=== PATIENT | female | born 1970 | race Caucasian/White ===

== ENCOUNTER 2018-06-28 17:25 | Inpatient (IN) | payer OTHER, MEDICAID ==
[~2018-06-28] VITALS: Ht 160 cm; Wt 94.3 kg
[2018-06-28] MEDS ORDERED: HYDROCODONE/ACETAMINOPHEN 5/325MG TABLET PO STA (18:10)
[2018-06-28] MEDS ORDERED: SODIUM CHLORIDE 0.9% 1,000 ML IV ONE (18:10)
[2018-06-28] MEDS ORDERED: ONDANSETRON HCL 4MG/2ML INJ IV STA (18:10)
[2018-06-28 18:59] LABS: BASOPHILS % 0.5 % (0.0-2.0); CHLORIDE 110 mEq/L (98-107); HEMATOCRIT. 37.8 % (36.0-48.0); HEMOGLOBIN. 13.2 g/dL (12.0-16.0); LYMPHOCYTES % 15.7 % (20.0-50.0); MEAN CORPUSCULAR HEMOGLOBIN 29.5 pg (28.0-32.0); MEAN CORPUSCULAR VOLUME 84.5 fL (81.0-99.0); MEAN PLATELET VOLUME 7.6 fl (7.4-10.4); MONOCYTES % 5.6 % (2.0-8.0); NEUTROPHILS % 75.2 % (40.0-76.0); PLATELET 325 x1000/uL (130-400); RED BLOOD CELL COUNT 4.47 mill/uL (4.2-5.4); RED CELL DISTRIBUTION WIDTH 13.1 % (11.6-14.6)
[2018-06-28 19:02] LABS: INR 0.9; PROTHROMBIN TIME 9.4 sec (9.1-11.1)
[2018-06-28 19:23] LABS: CLARITY URINE CLOUDY (CLEAR); COLOR URINE YELLOW (YELLOW); KETONES URINE NEGATIVE (NEGATIVE); LEUKOCYTE ESTERASE URINE 3+ (NEGATIVE); NITRITE URINE NEGATIVE (NEGATIVE); OCCULT BLOOD URINE TRACE (NEGATIVE); PH URINE 5.5 (4.5-8.0); PROTEIN URINE NEGATIVE (NEGATIVE); SPECIFIC GRAVITY URINE 1.021 (1.005-1.030); UROBILINOGEN URINE 0.2 E.U./dL (0.2-1.0)
[2018-06-28] MEDS ORDERED: HYDROMORPHONE HCL/PF 2MG/ML CPJ IV ONE (21:00)
[2018-06-28] MEDS ORDERED: CEFTRIAXONE 1 G PREMIX 50 ML IV ONE (21:00)
[2018-06-29] MEDS ORDERED: MORPHINE SULFATE 2 MG/ML CPJ (NOT FOR IM USE) IV PRN
[2018-06-29] MEDS ORDERED: IPRATROPIUM/ALBUTEROL 0.5-3(2.5)MG/3ML NEB INH PRN
[2018-06-29] MEDS: ONDANSETRON HCL 4MG/2ML INJ IV PRN ×2 (00:26→18:40)
[2018-06-29 01:56] LABS: CHLORIDE 112 mEq/L (98-107)
[2018-06-29 05:30] LABS: BASOPHILS % 0.4 % (0.0-2.0); EOSINOPHILS % 1.7 % (0.0-5.0); HEMATOCRIT. 34.7 % (36.0-48.0); HEMOGLOBIN. 11.9 g/dL (12.0-16.0); LYMPHOCYTES % 19.8 % (20.0-50.0); MEAN CORPUSCULAR HEMOGLOBIN 29.4 pg (28.0-32.0); MEAN CORPUSCULAR VOLUME 85.3 fL (81.0-99.0); MEAN PLATELET VOLUME 7.3 fl (7.4-10.4); MONOCYTES % 7.1 % (2.0-8.0); PLATELET 292 x1000/uL (130-400); RED BLOOD CELL COUNT 4.07 mill/uL (4.2-5.4); RED CELL DISTRIBUTION WIDTH 13.4 % (11.6-14.6)
[2018-06-29 05:43] LABS: LDL CHOLESTEROL 91 mg/dL (5-100)
[2018-06-29 05:45] LABS: CREATINE KINASE 85 IU/L (26-192); HDL CHOLESTEROL 45 mg/dL (40-59)
[2018-06-29 06:11] LABS: CREATINE KINASE MB FRACTION 2.7 ng/mL (0.5-3.6)
[2018-06-29] MEDS ORDERED: CEFTRIAXONE 1 G PREMIX 50 ML IV SCH ×2 (10:00→21:00)
[2018-06-29] MEDS ORDERED: HYDROMORPHONE HCL/PF 2MG/ML CPJ IV PRN (10:00)
[2018-06-29 11:00] VITALS: BP 127/71
[2018-06-29 12:00] VITALS: BP 128/74
[2018-06-29] MEDS ORDERED: ENOXAPARIN 40MG/0.4ML SYR SUBCUT SCH (12:00)
[2018-06-29] MEDS: SODIUM CHLORIDE 0.9% 1,000 ML IV SCH (13:37)
[2018-06-29] MEDS ORDERED: QUET25TA MT (14:02)
[2018-06-29] MEDS ORDERED: OXCA150T5 MT (14:03)
[2018-06-29] MEDS ORDERED: LITH150C MT (14:03)
[2018-06-29 15:48] LABS: CREATINE KINASE 105 IU/L (26-192)
[2018-06-29 15:50] LABS: CREATINE KINASE MB FRACTION 2.2 ng/mL (0.5-3.6)
[2018-06-29 16:00] VITALS: BP 119/80
[2018-06-29 20:00] VITALS: BP 157/75
[2018-06-29] MEDS ORDERED: LORAZEPAM 2MG/ML CPJ IV PRN (20:00)
[2018-06-29] MEDS ORDERED: OXCA300T4 MT (20:46)
[2018-06-29] MEDS ORDERED: LITH300C3 PO (20:46)
[2018-06-29] MEDS ORDERED: QUET100T PO (20:46)
[2018-06-29] MEDS ORDERED: QUETIAPINE FUMARATE 25MG TABLET PO SCH (21:00)
[2018-06-29] MEDS ORDERED: OXCARBAZEPINE 300MG TABLET PO SCH (21:00)
[2018-06-29] MEDS ORDERED: QUETIAPINE FUMARATE 100MG TABLET PO SCH (21:00)
[2018-06-29] MEDS ORDERED: LITHIUM CARBONATE 900 MG PO SCH (21:00)
[2018-06-29] MEDS ORDERED: OXCARBAZEPINE MT SCH (21:00)
[2018-06-29] MEDS ORDERED: LITHIUM CARBONATE 150 MG CAPSULE PO SCH (21:00)
[2018-06-30] VITALS: BP 90/46
[2018-06-30 04:00] VITALS: BP 93/38
[2018-06-30] MEDS: SODIUM CHLORIDE 0.9% 1,000 ML IV SCH (04:54)
[2018-06-30 06:40] LABS: BASOPHILS % 0.6 % (0.0-2.0); EOSINOPHILS % 5.5 % (0.0-5.0); HEMATOCRIT. 31.5 % (36.0-48.0); LYMPHOCYTES % 34.4 % (20.0-50.0); MEAN CORPUSCULAR VOLUME 85.7 fL (81.0-99.0); MEAN PLATELET VOLUME 7.6 fl (7.4-10.4); MONOCYTES % 8.5 % (2.0-8.0); PLATELET 253 x1000/uL (130-400); RED BLOOD CELL COUNT 3.68 mill/uL (4.2-5.4); RED CELL DISTRIBUTION WIDTH 13.4 % (11.6-14.6)
[2018-06-30 06:53] LABS: CHLORIDE 111 mEq/L (98-107)
[2018-06-30 08:00] VITALS: BP 97/53
[2018-06-30] MEDS ORDERED: ENOXAPARIN 40MG/0.4ML SYR SUBCUT SCH (09:00)
[2018-06-30 12:00] VITALS: BP 111/64
[2018-06-30] MEDS ORDERED: POTASSIUM CHLORIDE 20MEQ TABLET SR PO NR (12:00)
[2018-06-30 14:49] VITALS: BP 119/74
[2018-06-30] MEDS ORDERED: OXCARBAZEPINE 300MG TABLET PO SCH (21:00)
== END 2018-06-30 15:07 | disposition home or self-care (01) | DRG 690 ==
LOC: ER 17:25 → 6EST 21:09 → ENRESERV 06-29 06:54 → CANRESERV 06-29 06:54 → ENRESERV 06-29 09:51 → 6EST 06-29 10:50
PROVIDERS: ADMIT Internal Medicine; ATTEND Internal Medicine
DX: N39.0 Urinary tract infection, site not specified (principal); K56.609 Unspecified intestinal obstruction, unspecified as to partial versus complete obstruction; A08.4 Viral intestinal infection, unspecified; E87.8 Other disorders of electrolyte and fluid balance, not elsewhere classified; F31.9 Bipolar disorder, unspecified; E66.9 Obesity, unspecified; M41.9 Scoliosis, unspecified; Z87.891 Personal history of nicotine dependence; Z68.36 Body mass index [BMI] 36.0-36.9, adult; Z88.8 Allergy status to other drugs, medicaments and biological substances
CPT/HCPCS: 36415; 74018; 74176; 80048; 80061; 82550; 82553; 83036; 83735; 84443; 84484; 93970; 96365; 96375; 99285; J0696; J1170; J1650; J2060; J2405; J7030

== ENCOUNTER 2021-07-29 19:15 | Emergency (ER) | payer MEDICARE ==
[~2021-07-29] VITALS: Ht 165.1 cm; Wt 91.0 kg
[~2021-07-29 19:15] MED LIST: LITH300C3 PO; OXCA300T4 MT; QUET100T PO
[2021-07-29] MEDS ORDERED: KETOROLAC 30MG/ML VIAL IV ONE (21:00)
[2021-07-29 21:02] LABS: BASOPHILS % 0.7 % (0.0-2.0); EOSINOPHILS % 2.4 % (0.0-5.0); HEMATOCRIT. 41.3 % (36.0-48.0); HEMOGLOBIN. 13.7 g/dL (12.0-16.0); LYMPHOCYTES % 20.7 % (20.0-50.0); MEAN CORPUSCULAR HEMOGLOBIN 28.4 pg (28.0-32.0); MEAN CORPUSCULAR VOLUME 85.7 fL (81.0-99.0); MEAN PLATELET VOLUME 7.7 fl (7.4-10.4); MONOCYTES % 5.9 % (2.0-8.0); NEUTROPHILS % 70.3 % (40.0-76.0); PLATELET 346 x1000/uL (130-400); RED BLOOD CELL COUNT 4.82 mill/uL (4.2-5.4); RED CELL DISTRIBUTION WIDTH 13.1 % (11.6-14.6)
[2021-07-29 21:04] LABS: CHLORIDE 115 mEq/L (98-107)
[2021-07-29 21:26] VITALS: BP 125/74
[2021-07-29] MEDS ORDERED: ONDANSETRON HCL 4MG/2ML INJ IV ONE (21:30)
[2021-07-29] MEDS ORDERED: ONDA4TAB5 PO (22:24)
[2021-07-29] MEDS ORDERED: TOPUD PO (22:24)
== END 2021-07-29 22:58 | disposition home or self-care (01) ==
LOC: ER 19:15
DX: R10.9 Unspecified abdominal pain (principal); R11.2 Nausea with vomiting, unspecified; Z88.0 Allergy status to penicillin; Z88.8 Allergy status to other drugs, medicaments and biological substances
CPT/HCPCS: 36415; 74176; 80053; 83690; 85025; 96374; 96375; 99284; J1885; J2405

== ENCOUNTER 2023-01-09 16:23 | Emergency (ER) | payer MEDICAID, MEDICARE ==
[~2023-01-09] VITALS: Ht 165.1 cm; Wt 100.0 kg
[~2023-01-09 16:23] MED LIST changes: +ONDA4TAB5 PO; +TOPUD PO
[2023-01-09] MEDS ORDERED: KETOROLAC 30MG/ML VIAL IV STA (17:21)
[2023-01-09] MEDS ORDERED: SODIUM CHLORIDE 0.9% 1,000 ML IV ONE (17:30)
[2023-01-09 17:52] VITALS: BP 138/90
[2023-01-09 18:09] LABS: BASOPHILS % 0.3 % (0.0-2.0); EOSINOPHILS % 2.8 % (0.0-5.0); HEMATOCRIT. 35.8 % (36.0-48.0); HEMOGLOBIN. 12.4 g/dL (12.0-16.0); LYMPHOCYTES % 17.8 % (20.0-50.0); MEAN CORPUSCULAR HEMOGLOBIN 28.9 pg (28.0-32.0); MEAN CORPUSCULAR VOLUME 83.4 fL (81.0-99.0); MEAN PLATELET VOLUME 7.3 fl (7.4-10.4); MONOCYTES % 7.3 % (2.0-8.0); NEUTROPHILS % 71.8 % (40.0-76.0); PLATELET 273 x1000/uL (130-400); RED CELL DISTRIBUTION WIDTH 13.5 % (11.6-14.6)
[2023-01-09 18:16] LABS: CHLORIDE 113 mEq/L (98-107)
[2023-01-09 18:28] LABS: HCG SCREEN NEGATIVE
[2023-01-09 18:28] LABS: CLARITY URINE CLEAR (CLEAR); COLOR URINE YELLOW (YELLOW); KETONES URINE NEGATIVE (NEGATIVE); LEUKOCYTE ESTERASE URINE 3+ (NEGATIVE); NITRITE URINE NEGATIVE (NEGATIVE); OCCULT BLOOD URINE TRACE (NEGATIVE); PROTEIN URINE NEGATIVE (NEGATIVE); SPECIFIC GRAVITY URINE 1.007 (1.005-1.030); UROBILINOGEN URINE 0.2 E.U./dL (0.2-1.0)
[2023-01-09] MEDS ORDERED: CIPR-263 MT (18:48)
== END 2023-01-09 19:40 | disposition home or self-care (01) ==
LOC: ER 16:23
DX: N39.0 Urinary tract infection, site not specified (principal); Z90.49 Acquired absence of other specified parts of digestive tract; Z88.0 Allergy status to penicillin; Z98.51 Tubal ligation status; Z98.890 Other specified postprocedural states
CPT/HCPCS: 36415; 74176; 80053; 81003; 83690; 84703; 85025; 96361; 96374; 99285; J1885; J7030; Z7610

== ENCOUNTER 2024-02-13 11:29 | Emergency (ER) | payer BC, MEDICAID ==
[~2024-02-13] VITALS: Ht 160 cm; Wt 113.0 kg
[~2024-02-13 11:29] MED LIST changes: +CIPR-263 MT
[2024-02-13 11:33] VITALS: O2SAT 96
[2024-02-13] MEDS: IBUPROFEN 600MG TABLET PO ONE (12:52)
[2024-02-13] MEDS ORDERED: IBUP-2029 MT (13:11)
[2024-02-13 13:17] VITALS: BP 110/72; PULSE 88; RESP 16; TEMP 98.6
== END 2024-02-13 13:22 | disposition home or self-care (01) ==
LOC: ER 11:29
DX: S22.32XA Fracture of one rib, left side, initial encounter for closed fracture (principal); S20.212A Contusion of left front wall of thorax, initial encounter; J44.9 Chronic obstructive pulmonary disease, unspecified; F31.9 Bipolar disorder, unspecified; Z98.51 Tubal ligation status; Z98.890 Other specified postprocedural states; Z88.0 Allergy status to penicillin; Z88.8 Allergy status to other drugs, medicaments and biological substances; W18.39XA Other fall on same level, initial encounter; Y93.89 Activity, other specified; Y92.89 Other specified places as the place of occurrence of the external cause; Y99.8 Other external cause status
CPT/HCPCS: 71101; 99283

== ENCOUNTER 2025-01-30 04:52 | Emergency (ER) | payer MEDICARE, MEDICAID ==
[~2025-01-30] VITALS: Ht 165.1 cm; Wt 87.0 kg
[~2025-01-30 04:52] MED LIST changes: +IBUP-2029 MT
[2025-01-30 05:09] VITALS: O2SAT 98
[2025-01-30] MEDS: IBUPROFEN 600MG TABLET PO ONE (06:46)
[2025-01-30 08:06] VITALS: BP 128/70; PULSE 67; RESP 16; TEMP 36.9; O2SAT 97
== END 2025-01-30 08:08 | disposition home or self-care (01) ==
LOC: ER 05:41
DX: S20.212A Contusion of left front wall of thorax, initial encounter (principal); F31.9 Bipolar disorder, unspecified; J44.89 Other specified chronic obstructive pulmonary disease; Z88.0 Allergy status to penicillin; Z79.899 Other long term (current) drug therapy; Z98.51 Tubal ligation status; W01.0XXA Fall on same level from slipping, tripping and stumbling without subsequent striking against object, initial encounter; Y93.89 Activity, other specified; Y92.89 Other specified places as the place of occurrence of the external cause; Y99.8 Other external cause status
CPT/HCPCS: 71046; 99283

== ENCOUNTER 2025-05-21 07:43 | Emergency (ER) | payer MEDICARE, MEDICAID ==
[~2025-05-21] VITALS: Ht 160 cm; Wt 78.0 kg
[~2025-05-21 07:43] MED LIST changes: +ATOR40TA70 MT; +CARB100C9 MT; +GABA-1180 MT; +IBUP-1455 MT; -IBUP-2029 MT; +TRAZ-252 MT
[2025-05-21 07:44] VITALS: BP 120/60; PULSE 80; RESP 16; TEMP 36.3; O2SAT 96
[2025-05-21] MEDS: ACETAMINOPHEN 325MG TABLET PO ONE (08:08)
== END 2025-05-21 09:21 | disposition left against medical advice (07) ==
LOC: ER 07:43
DX: S20.211A Contusion of right front wall of thorax, initial encounter (principal); J44.89 Other specified chronic obstructive pulmonary disease; Z88.0 Allergy status to penicillin; Z79.899 Other long term (current) drug therapy; W01.0XXA Fall on same level from slipping, tripping and stumbling without subsequent striking against object, initial encounter; Y93.89 Activity, other specified; Y92.89 Other specified places as the place of occurrence of the external cause; Y99.8 Other external cause status
CPT/HCPCS: 71045; 99283